=== PATIENT | male | born 1970 | race Caucasian/White ===

== ENCOUNTER 2022-08-13 07:35 | Outpatient (CLI) | payer OTHER, SELFPAY ==
--- NOTE | ~2022-08-13 | US_ITS ---
Limited Abdominal Sonogram: Real-time sonographic imaging of the right upper quadrant was performed. Clinical History: Elevated liver enzymes Findings: The liver appears echogenic, with no evidence of mass lesion or bile duct dilatation. Main portal vein demonstrates normal direction of flow. The gallbladder is well distended, and appears no rmal with no evidence of gallstone or wall thickening. The common bile duct measures 6 mm. The visua lized pancreas, aorta, and IVC are unremarkable. Impression: Diffuse fatty infiltration of the liver. Reviewed, dictated and finalized at location [facility] Impression: Diffuse fatty infiltration of the liver.
== END 2022-08-13 07:36 | disposition home or self-care (01) ==
PROVIDERS: PCP Student in an Organized Health Care Education/Training Program; Visit Provider Student in an Organized Health Care Education/Training Program
DX: R74.8 Abnormal levels of other serum enzymes (principal); K76.0 Fatty (change of) liver, not elsewhere classified
CPT/HCPCS: 76705

== ENCOUNTER 2023-11-21 06:55 | Outpatient (CLI) | payer OTHER, SELFPAY ==
--- NOTE | ~2023-11-21 | MR_ITS ---
MRI of the left knee Clinical history: Pain Technique: Coronal proton density and proton density-weighted images, sagittal proton-density and T2 fat-sat images, and axial proton-density fat-saturated images were acquired. Findings: Anterior and posterior cruciate ligaments are intact. Medial collateral ligament and the la teral collateral ligament complex are intact. Popliteus tendon is intact. There is focal vertical/complex tearing of the body segment of the medial meniscus. Lateral meniscus is intact. 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 Remaining articular cartilage that the knee is relatively well-p reserved. Extensor mechanism is intact. No significant joint effusion. Small Crenshaw cyst present. Impression: Vertical/complex tear of the body segment of the medial meniscus. 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 Small Crenshaw's cyst. Reviewed, dictated and finalized at location . Impression: Vertical/complex tear of the body segment of the medial meniscus. 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 Small Crenshaw's cyst.
== END 2023-11-21 06:56 ==
PROVIDERS: PCP Student in an Organized Health Care Education/Training Program; Visit Provider Student in an Organized Health Care Education/Training Program
DX: M71.22 Synovial cyst of popliteal space [Baker], left knee (principal); S83.232A Complex tear of medial meniscus, current injury, left knee, initial encounter; X58.XXXA Exposure to other specified factors, initial encounter
CPT/HCPCS: 73721